=== PATIENT | female | born 1965 | race Caucasian/White ===

== ENCOUNTER 2016-07-11 07:08 | Emergency (ER) | payer BC, MEDICARE ==
[2016-07-11 07:21] VITALS: BP 126/76
[2016-07-11] MEDS ORDERED: Lidocaine 2% Viscous Solution 15 ML Cup PO ONE (07:35)
[2016-07-11] MEDS ORDERED: Benzocaine 20% Topical Spray UD MUCMEM ONE (07:35)
--- NOTE | 2016-07-11 07:39 | EDM.PDOC ---
ED HPI ENT - General Chief Complaint: ENT Problem Stated Complaint: TOOTH PAIN Time Seen by Provider: 07/11/16 07:13 Source of Information: Reports: Patient History Limitations: Reports: No limitations - History of Present Illness INITIAL COMMENTS - FREE TEXT/NARRATIVE: History of present illness: [] Patient has had 5 days of dental pain is worsening symptoms. She denies any fevers, chills, drainage from her lower front tooth. She has a dentist however is on vacation. Patient has no difficulty swallowing or breathing. Review of systems: As per history of present illness and below otherwise all systems reviewed and negative. Past medical history: As per history of present illness and as reviewed below otherwise noncontributory. Surgical history: As per history of present illness and as reviewed below otherwise noncontributory. Social history: No reported history of drug or alcohol abuse. Family history: As per history of present illness and as reviewed below otherwise noncontributory. Physical exam: General: Well developed, well nourished in NAD HEENT: Atraumatic, normocephalic, pupils reactive, negative for conjunctival pallor or scleral icterus, mucous membranes moist, throat clear, neck supple, nontender, trachea midline. No facial swelling or erythema or gingival drainage , swelling or erythema Lungs: Clear to auscultation, breath sounds equal bilaterally, chest nontender. Heart: S1S2, regular, negative for clicks, rubs, or JVD. Abdomen: Soft, nondistended, nontender. Negative for masses or hepatosplenomegaly. Negative for costovertebral tenderness. Pelvis: Stable nontender. Genitourinary: Deferred. Rectal: Deferred. Extremities: Atraumatic, negative for cords or calf pain. Neurovascular unremarkable. Neuro: Awake, alert, oriented. Cranial nerves II through XII unremarkable. Cerebellum unremarkable. Motor and sensory unremarkable throughout. Exam nonfocal. Diagnostics: [] Therapeutics: [] Impression: [] Dental pain Plan: [] Followup dentist, dental pulse for pain, Pen-Vee K 3 times a day. Definitive disposition and diagnosis as appropriate pending reevaluation and review of above. - Related Data Allergies/ADRs: Allergies Allergy/AdvReac Type Severity Reaction Status Date / Time No Known Allergies Allergy Verified 07/11/16 07:20 Home Meds: Home Meds DULoxetine [Cymbalta] 60 mg PO DAILY 01/13/14 [History] Omeprazole [Prilosec] 20 mg PO DAILY 05/21/14 [History] Chlorthalidone 12.5 mg PO DAILY 07/11/16 [History] Losartan [Cozaar] 50 mg PO DAILY 07/11/16 [History] Penicillin V Potassium 500 mg PO Q8HR #30 tab 07/11/16 [Rx] Past Medical History Cardiovascular History: Reports: High cholesterol, Hypertension Gastrointestinal History: Reports: GERD Other OB/BYN History: D&C Psychiatric History: Reports: Depression - Infectious Disease History Infectious Disease History: Reports: Chicken pox, Measles, Mumps - Past Surgical History Musculoskeletal Surgical History: Reports: Hip replacement Other Musculoskeletal Surgeries/Procedures:: back surgery Social & Family History - Family History Family Medical History: Noncontributory - Tobacco Use Smoking Status *Q: Current Every Day Smoker Years of Tobacco use: 30 Packs/Tins Daily: 0.5 Used Tobacco, but Quit: Yes Month Tobacco Last Used: 11 Second Hand Smoke Exposure: No - Caffeine Use Caffeine Use: Reports: None - Alcohol Use Days Per Week of Alcohol Use: 0 - Recreational Drug Use Recreational Drug Use: No Recreational Drug Type: Reports: Cocaine, Marijuana/Hashish Recreational Drug Use Frequency: Not Used In Over 1 Year Recreational Drug Last Use: 20 years ago ED ROS ENT - Review of Systems Review Of Systems: See Below (See history of present illness) ED EXAM, ENT - Physical Exam Exam: See Below (See history of present illness) Course - Vital Signs Last Recorded V/S: Last Vital Signs Temp 36.7 C 07/11/16 07:18 Pulse 81 07/11/16 07:18 Resp 18 07/11/16 07:18 BP 126/76 07/11/16 07:18 Pulse Ox 94 L 07/11/16 07:18 - Orders/Labs/Meds Meds: Medications Discontinued Medications Generic Name Dose Route Start Last Admin Trade Name Davidq PRN Reason Stop Dose Admin Benzocaine 2 each 07/11/16 07:35 Hurricaine One 20% MUCMEM 07/11/16 07:36 ONETIME ONE Lidocaine HCl 15 ml 07/11/16 07:35 Xylocaine 2% Viscous PO 07/11/16 07:36 ONETIME ONE Departure - Departure Time of Disposition: 07:38 Disposition: Home, Self-Care 01 Condition: good Clinical Impression: Pain, dental Prescriptions: Penicillin V Potassium 500 mg PO Q8HR #30 tab Forms: ED Department Discharge Additional Instructions: The following information is given to patients seen in the emergency department who are being discharged to home. This information is to outline your options for follow-up care. We provide all patients seen in our emergency department with a follow-up referral. The need for follow-up, as well as the timing and circumstances, are variable depending upon the specifics of your emergency department visit. If you don't have a primary care physician on staff, we will provide you with a referral. We always advise you to contact your personal physician following an emergency department visit to inform them of the circumstance of the visit and for follow-up with them and/or the need for any referrals to a consulting specialist. The emergency department will also refer you to a specialist when appropriate. This referral assures that you have the opportunity for follow-up care with a specialist. All of these measure are taken in an effort to provide you with optimal care, which includes your follow-up. Under all circumstances we always encourage you to contact your private physician who remains a resource for coordinating your care. When calling for follow-up care, please make the office aware that this follow-up is from your recent emergency room visit. If for any reason you are refused follow-up, please contact the [facility] Emergency Department at and asked to speak to the emergency department charge nurse. [facility] [address] [place] [id number]
== END 2016-07-11 08:03 | disposition home or self-care (01) ==
LOC: MW.ED 07:08
DX: K08.89 Other specified disorders of teeth and supporting structures (principal); I10 Essential (primary) hypertension; E78.00 Pure hypercholesterolemia, unspecified; K21.9 Gastro-esophageal reflux disease without esophagitis; F32.9 Major depressive disorder, single episode, unspecified; F17.210 Nicotine dependence, cigarettes, uncomplicated; Z96.649 Presence of unspecified artificial hip joint; Z98.890 Other specified postprocedural states; Z79.899 Other long term (current) drug therapy
CPT/HCPCS: 99282; A9270; 99283

== ENCOUNTER 2016-12-25 09:30 | Emergency (ER) | payer BC, MEDICARE ==
--- NOTE | 2016-12-25 09:58 | EDM.PDOC ---
ED HPI GENERAL MEDICAL PROBLEM - General Chief Complaint: Head Injury Stated Complaint: FELL AND HIT THE BACK OF HER HEAD Time Seen by Provider: 12/25/16 09:34 Source of Information: Reports: Patient History Limitations: Reports: No Limitations - History of Present Illness INITIAL COMMENTS - FREE TEXT/NARRATIVE: History of present illness: []Patient was sitting on a metal bar stool when it broke and she fell backwards hitting her head on the floor at home no loss of consciousness and has a large lump on the back of her head. Denies any loss of vision, numbness or tingling or vomiting. She does have pain in the area where she had and nausea. Patient also states that she landed on her left hip and she has previously had a left hip replacement she denies any pain at this time. Review of systems: As per history of present illness and below otherwise all systems reviewed and negative. Past medical history: As per history of present illness and as reviewed below otherwise noncontributory. Surgical history: As per history of present illness and as reviewed below otherwise noncontributory. Social history: No reported history of drug or alcohol abuse. Family history: As per history of present illness and as reviewed below otherwise noncontributory. Physical exam: General: Well developed, well nourished in NAD HEENT: Large swelling of the back of her scalp no neck pain or vertebral step- offs, there is no open wounds normocephalic, pupils reactive, negative for conjunctival pallor or scleral icterus, mucous membranes moist, throat clear, neck supple, nontender, trachea midline. Lungs: Clear to auscultation, breath sounds equal bilaterally, chest nontender. Heart: S1S2, regular, negative for clicks, rubs, or JVD. Abdomen: Soft, nondistended, nontender. Negative for masses or hepatosplenomegaly. Negative for costovertebral tenderness. Pelvis: Stable nontender. Genitourinary: Deferred. Rectal: Deferred. Extremities: Atraumatic, negative for cords or calf pain. Neurovascular unremarkable. Neuro: Awake, alert, oriented. Cranial nerves II through XII unremarkable. Cerebellum unremarkable. Motor and sensory unremarkable throughout. Exam nonfocal. Diagnostics: []CT head negative for fracture or bleed Therapeutics: [] Impression: []Scalp contusion Plan: []Ice to scalp, Tylenol, follow-up PMD or return to [facility] ER if symptoms worsen or change Definitive disposition and diagnosis as appropriate pending reevaluation and review of above. Treatments [employer]ATIONS ASSOCIATE: Reports: NSAIDS Posterior Occipital Head Pain Score (Numeric/FACES): 5 - Related Data Allergies Allergy/AdvReac Type Severity Reaction Status Date / Time No Known Allergies Allergy Verified 12/25/16 09:52 Home Meds: Home Meds DULoxetine [Cymbalta] 60 mg PO DAILY 01/13/14 [History] Omeprazole [Prilosec] 20 mg PO DAILY 05/21/14 [History] Chlorthalidone 12.5 mg PO DAILY 07/11/16 [History] Losartan [Cozaar] 50 mg PO DAILY 07/11/16 [History] Past Medical History Cardiovascular History: Reports: High Cholesterol, Hypertension Gastrointestinal History: Reports: GERD Other OB/BYN History: D&C Psychiatric History: Reports: Depression - Infectious Disease History Infectious Disease History: Reports: Chicken Pox, Measles, Mumps - Past Surgical History Musculoskeletal Surgical History: Reports: Hip Replacement Social & Family History - Family History Family Medical History: Noncontributory - Tobacco Use Smoking Status *Q: Current Every Day Smoker Years of Tobacco use: 30 Packs/Tins Daily: 0.5 Used Tobacco, but Quit: Yes Month Tobacco Last Used: 11 Second Hand Smoke Exposure: No - Caffeine Use Caffeine Use: Reports: None - Alcohol Use Days Per Week of Alcohol Use: 0 - Recreational Drug Use Recreational Drug Use: No Recreational Drug Type: Reports: Cocaine, Marijuana/Hashish Recreational Drug Use Frequency: Not Used In Over 1 Year Recreational Drug Last Use: 20 years ago ED ROS GENERAL - Review of Systems Review Of Systems: See Below (History of present illness) ED EXAM, HEAD INJURY - Physical Exam Exam: See Below (See history of present illness) Course - Vital Signs Last Recorded V/S: Last Vital Signs Temp 36.3 C 12/25/16 09:46 Pulse 72 12/25/16 09:46 Resp 12 12/25/16 09:46 BP 134/89 12/25/16 09:46 Pulse Ox 97 12/25/16 09:46 Departure - Departure Time of Disposition: 10:47 Disposition: Home, Self-Care 01 Condition: Good Clinical Impression: Scalp contusion Qualifiers: Encounter type: initial encounter Qualified Code(s): S00.03XA - Contusion of scalp, initial encounter - Discharge Information Referrals: PCP,None [Primary Care Provider] - Forms: ED Department Discharge Additional Instructions: The following information is given to patients seen in the emergency department who are being discharged to home. This information is to outline your options for follow-up care. We provide all patients seen in our emergency department with a follow-up referral. The need for follow-up, as well as the timing and circumstances, are variable depending upon the specifics of your emergency department visit. If you don't have a primary care physician on staff, we will provide you with a referral. We always advise you to contact your personal physician following an emergency department visit to inform them of the circumstance of the visit and for follow-up with them and/or the need for any referrals to a consulting specialist. The emergency department will also refer you to a specialist when appropriate. This referral assures that you have the opportunity for follow-up care with a specialist. All of these measure are taken in an effort to provide you with optimal care, which includes your follow-up. Under all circumstances we always encourage you to contact your private physician who remains a resource for coordinating your care. When calling for follow-up care, please make the office aware that this follow-up is from your recent emergency room visit. If for any reason you are refused follow-up, please contact the [facility] Emergency Department at and asked to speak to the emergency department charge nurse. Ice to scalp, Tylenol for pain with PMD return immediately to the ER if any symptoms worsen or change including severe headache, vomiting, change in vision [facility] [address] [place] [id number]
--- NOTE | 2016-12-25 10:41 | CT ---
EXAMINATION: Non contrast CT head. Coronal and sagittal reformats. HISTORY: Pain FINDINGS: No evidence of intra or extra axial hemorrhage, mass, midline shift, hydrocephalus or edema. No hyp oattenuation changes in the major vascular territories to suggest acute infarct. No abnormal intracranial calcifications are detected. No evidence of substantial vascular calcificat ions. There is heterogeneous opacification of the right maxillary sinus with overlying mucoperiosteal react ion. There is erosion versus postsurgical changes noted along the medial right maxillary wall. Pituitary fossa appears unremarkable. The calvarium is intact. No evidence of skull fracture. IMPRESSION: 1. No acute intracranial findings. 2. Heterogeneous opacification of the right maxillary sinus, likely representing a fungal infection v ersus inspissated secretions.
[2016-12-25 11:07] VITALS: BP 118/72
== END 2016-12-25 11:05 | disposition home or self-care (01) ==
LOC: MW.ED 09:30
DX: S00.03XA Contusion of scalp, initial encounter (principal); E78.00 Pure hypercholesterolemia, unspecified; I10 Essential (primary) hypertension; F17.210 Nicotine dependence, cigarettes, uncomplicated; Z79.899 Other long term (current) drug therapy; W01.10XA Fall on same level from slipping, tripping and stumbling with subsequent striking against unspecified object, initial encounter
CPT/HCPCS: 70450; 70450-26; 99283; 99284-25

== ENCOUNTER 2017-03-20 21:02 | Emergency (ER) | payer BC, MEDICARE ==
--- NOTE | 2017-03-20 21:16 | EDM.PDOC ---
ED HPI GENERAL MEDICAL PROBLEM - General Chief Complaint: Respiratory Problem Stated Complaint: TROUBLE BREATHING/CHEST PAIN/COUGH/CONGESTION Time Seen by Provider: 03/20/17 21:13 - History of Present Illness INITIAL COMMENTS - FREE TEXT/NARRATIVE: HISTORY AND PHYSICAL: History of present illness: Patient's 51-year-old white female presents with concern of multiple complaints she states that cough intermittently off and on after [place] she states she' s had fever denies vomiting chest pain or other concern she is a smoker she denies influenza immunization Review of systems: As per history of present illness and below otherwise all systems reviewed and negative. Past medical history: As per history of present illness and as reviewed below otherwise noncontributory. Surgical history: As per history of present illness and as reviewed below otherwise noncontributory. Social history: No reported history of drug or alcohol abuse. Family history: As per history of present illness and as reviewed below otherwise noncontributory. Physical exam: HEENT: Atraumatic, normocephalic, pupils reactive, negative for conjunctival pallor or scleral icterus, mucous membranes moist, throat clear, neck supple, nontender, trachea midline. Lungs: Clear to auscultation, breath sounds equal bilaterally, chest nontender. Heart: S1S2, regular, negative for clicks, rubs, or JVD. Abdomen: Soft, nondistended, nontender. Negative for masses or hepatosplenomegaly. Negative for costovertebral tenderness. Pelvis: Stable nontender. Genitourinary: Deferred. Rectal: Deferred. Extremities: Atraumatic, negative for cords or calf pain. Neurovascular unremarkable. Neuro: Awake, alert, oriented. Cranial nerves II through XII unremarkable. Cerebellum unremarkable. Motor and sensory unremarkable throughout. Exam nonfocal. Diagnostics: CBC CMP chest x-ray influenza screen UA Therapeutics: None Impression: #1 tracheobronchitis Definitive disposition and diagnosis as appropriate pending reevaluation and review of above. - Related Data Allergies Allergy/AdvReac Type Severity Reaction Status Date / Time No Known Allergies Allergy Verified 03/20/17 21:30 Home Meds: Home Meds DULoxetine [Cymbalta] 60 mg PO DAILY 01/13/14 [History] Omeprazole [Prilosec] 20 mg PO DAILY 05/21/14 [History] Chlorthalidone 12.5 mg PO DAILY 07/11/16 [History] Losartan [Cozaar] 50 mg PO DAILY 07/11/16 [History] Past Medical History Cardiovascular History: Reports: High Cholesterol, Hypertension Gastrointestinal History: Reports: GERD Other OB/BYN History: D&C Psychiatric History: Reports: Depression - Infectious Disease History Infectious Disease History: Reports: Chicken Pox, Measles, Mumps - Past Surgical History Musculoskeletal Surgical History: Reports: Hip Replacement Social & Family History - Family History Family Medical History: Noncontributory - Tobacco Use Smoking Status *Q: Current Every Day Smoker Years of Tobacco use: 30 Packs/Tins Daily: 0.5 Used Tobacco, but Quit: Yes Month Tobacco Last Used: 11 Second Hand Smoke Exposure: No - Caffeine Use Caffeine Use: Reports: None - Alcohol Use Days Per Week of Alcohol Use: 0 - Recreational Drug Use Recreational Drug Use: No Drug Use in Last 12 Months: No Recreational Drug Type: Reports: Cocaine, Marijuana/Hashish Other Recreational Drug Type: opiates Recreational Drug Use Frequency: Not Used In Over 1 Year Recreational Drug Last Use: 20 years ago ED ROS GENERAL - Review of Systems Review Of Systems: ROS reveals no pertinent complaints other than HPI. ED EXAM, GENERAL - Physical Exam Exam: See Below (See dictation) Course - Vital Signs Last Recorded V/S: Last Vital Signs Temp 37.4 C 03/20/17 21:02 Pulse 111 H 03/20/17 21:02 Resp 20 03/20/17 21:02 BP 135/89 03/20/17 21:02 Pulse Ox 94 L 03/20/17 21:02 - Orders/Labs/Meds Orders: Active Orders 24 hr Category Date Time Status Chest 1V Frontal [CR] Stat Exams 03/20/17 21:16 Taken Labs: Laboratory Tests 03/20/17 03/20/17 03/20/17 Range/Units 21:30 21:32 21:32 WBC 6.43 (4.0-11.0) K/uL RBC 4.95 (4.30-5.90) M/uL Hgb 14.6 (12.0-16.0) g/dL Hct 42.9 (36.0-46.0) % MCV 86.7 (80.0-98.0) fL MCH 29.5 (27.0-32.0) pg MCHC 34.0 (31.0-37.0) g/dL RDW Std Deviation 42.0 (28.0-62.0) fl RDW Coeff of Tracy 13 (11.0-15.0) % Plt Count 227 (150-400) K/uL MPV 8.70 (7.40-12.00) fL Neut % (Auto) 70.8 (48.0-80.0) % Lymph % (Auto) 19.1 (16.0-40.0) % [place] % (Auto) 6.8 (0.0-15.0) % Eos % (Auto) 2.8 (0.0-7.0) % Baso % (Auto) 0.5 (0.0-1.5) % Neut # (Auto) 4.6 (1.4-5.7) K/uL Lymph # (Auto) 1.2 (0.6-2.4) K/uL Rolette # (Auto) 0.4 (0.0-0.8) K/uL Eos # (Auto) 0.2 (0.0-0.7) K/uL Baso # (Auto) 0.0 (0.0-0.1) K/uL Nucleated RBC % 0.0 /100WBC Nucleated RBCs # 0 K/uL Sodium 138 (136-146) mmol/L Potassium 3.2 L (3.5-5.1) mmol/L Chloride 102 (98-110) mmol/L Carbon Dioxide 24 (21-31) mmol/L BUN 6 (6.0-23.0) mg/dL Creatinine 0.7 (0.6-1.5) mg/dL Est Cr Clr Drug Dosing 91.42 mL/min Estimated GFR (MDRD) > 60.0 ml/min Glucose 110 (60-110) mg/dL Calcium 9.5 (8.8-10.8) mg/dL Total Bilirubin 0.8 (0.1-1.5) mg/dL AST 26 (5-40) IU/L ALT 28 (8-54) IU/L Alkaline Phosphatase 73 (40-150) Total Protein 7.9 (6.0-8.0) g/dL Albumin 4.5 (3.5-5.0) g/dL Globulin 3.4 (2.0-3.5) g/dL Albumin/Globulin Ratio 1.3 (1.3-2.8) Urine Color YELLOW Urine Appearance CLEAR Urine pH 7.0 (5.0-8.0) Ur Specific [place] 1.020 (1.001-1.035) Urine Protein NEGATIVE (NEGATIVE) mg/dL Urine Glucose (UA) NEGATIVE (NEGATIVE) mg/dL Urine Ketones NEGATIVE (NEGATIVE) mg/dL Urine Occult Blood NEGATIVE (NEGATIVE) Urine Nitrite NEGATIVE (NEGATIVE) Urine Bilirubin NEGATIVE (NEGATIVE) Urine Urobilinogen 1.0 (<2.0) EU/dL Ur Leukocyte Esterase NEGATIVE (NEGATIVE) Urine RBC 0-1 (0-2/HPF) Urine WBC 0-1 (0-5/HPF) Ur Epithelial Cells FEW (NONE-FEW) Urine Bacteria FEW (NEGATIVE) Departure - Departure Time of Disposition: 22:33 Disposition: Home, Self-Care 01 Condition: Good Clinical Impression: Influenza - Discharge Information Referrals: PCP,None [Primary Care Provider] - Forms: ED Department Discharge Additional Instructions: The following information is given to patients seen in the emergency department who are being discharged to home. This information is to outline your options for follow-up care. We provide all patients seen in our emergency department with a follow-up referral. The need for follow-up, as well as the timing and circumstances, are variable depending upon the specifics of your emergency department visit. If you don't have a primary care physician on staff, we will provide you with a referral. We always advise you to contact your personal physician following an emergency department visit to inform them of the circumstance of the visit and for follow-up with them and/or the need for any referrals to a consulting specialist. The emergency department will also refer you to a specialist when appropriate. This referral assures that you have the opportunity for followup care with a specialist. All of these measure are taken in an effort to provide you with optimal care, which includes your followup. Under all circumstances we always encourage you to contact your private physician who remains a resource for coordinating your care. When calling for followup care, please make the office aware that this follow-up is from your recent emergency room visit. If for any reason you are refused follow-up, please contact the [facility] emergency department at and asked to speak to the emergency department charge nurse. Motrin/Tylenol as directed push fluids follow-up primary medical doctor 1-2 days return as needed as discussed - My Orders Last 24 Hours: My Active Orders 03/20/17 21:16 Chest 1V Frontal [CR] Stat - Assessment/Plan Last 24 Hours: My Active Orders 03/20/17 21:16 Chest 1V Frontal [CR] Stat
[2017-03-20 21:59] LABS: CHLORIDE,CL 102 mmol/L (98-110); SODIUM,NA 138 mmol/L (136-146)
[2017-03-20 22:44] VITALS: BP 140/69
--- NOTE | 2017-03-21 13:40 | CR ---
EXAM DATE: 03/20/17 PATIENT'S AGE: 51 Patient: LORNA BUCIO Facility: [place], [place] Site . Site : 1965 Study: XRay Chest [id number]/16/2018 9:58:43 PM Ordering Physician: Stepan Flores Final Report: INDICATION: cough x1 month TECHNIQUE: Chest 1 view COMPARISON: None FINDINGS: Cardiovascular and mediastinum: Heart size and vasculature are normal in caliber and appearance. Mediastinum is within normal limits. Lungs and pleural space: No focal consolidation. No sign of pleural effusion. No pneumothorax. Bones and soft tissues: No significant findings. IMPRESSION: No acute cardiopulmonary disease. Dictated by Bob Ibrahim MD @ 03/20/2017 10:29:39 PM Dictated by: Bob Ibrahim MD @ 03/20/2017 22:29:50 (Electronic Signature) Report Signed by Proxy. [facility]ALSuzanna
== END 2017-03-20 22:39 | disposition home or self-care (01) ==
LOC: MW.ED 21:02
DX: J10.1 Influenza due to other identified influenza virus with other respiratory manifestations (principal); J40 Bronchitis, not specified as acute or chronic; E78.00 Pure hypercholesterolemia, unspecified; I10 Essential (primary) hypertension; F17.210 Nicotine dependence, cigarettes, uncomplicated; Z79.899 Other long term (current) drug therapy
CPT/HCPCS: 36415; 71045; 71045-26; 80053; 81001; 85025; 87804; 99283; 99284

== ENCOUNTER 2017-07-08 14:03 | Emergency (ER) | payer MEDICARE, BC ==
[2017-07-08] MEDS ORDERED: Sodium Chloride 0.9% 10 ML Syringe FLUSH PRN (14:10)
[2017-07-08] MEDS ORDERED: Aspirin 81 MG Tab.Chew PO ONE (14:10)
[2017-07-08] MEDS ORDERED: Sodium Chloride 0.9% 2.5 ML Syringe FLUSH PRN (14:10)
[2017-07-08] MEDS ORDERED: Albuterol/Ipratropium 3.0-0.5 MG/3 ML Neb Soln NEB ONE (14:28)
--- NOTE | 2017-07-08 14:32 | EDM.PDOC ---
ED HPI GENERAL MEDICAL PROBLEM - General Chief Complaint: Chest Pain Stated Complaint: CHEST PAIN Time Seen by Provider: 07/08/17 14:06 Source of Information: Reports: Patient History Limitations: Reports: No Limitations - History of Present Illness INITIAL COMMENTS - FREE TEXT/NARRATIVE: HISTORY AND PHYSICAL: History of present illness: [Present is a 52-year-old female with hypertension here for chest pain that started gradually yesterday. Pain is midsternal and she describes it as tight and sometimes throbbing. Pain increased with coughing. Reports it is a 5/10 on pain scale. She denies associated shortness of breath, radiation to left arm or jaw, or diaphoresis. She reports she's had a cough for 3 months, non-productive. Denies fevers, chills, nausea, vomiting, diarrhea, abdominal pain.] Review of systems: As per history of present illness and below otherwise all systems reviewed and negative. Past medical history: As per history of present illness and as reviewed below otherwise noncontributory. Surgical history: As per history of present illness and as reviewed below otherwise noncontributory. Social history: Tobacco Use. Family history: As per history of present illness and as reviewed below otherwise noncontributory. Physical exam: HEENT: Atraumatic, normocephalic, pupils reactive, negative for conjunctival pallor or scleral icterus, mucous membranes moist, Lungs: Breath sounds are slightly diminished throughout lung ashraf, breath sounds equal bilaterally, chest nontender. Heart: S1S2, regular, no murmur, rub, or extra heart sounds Abdomen: Soft, nondistended, nontender. Negative for masses or hepatosplenomegaly. Negative for costovertebral tenderness. Genitourinary: Deferred. Rectal: Deferred. Extremities: No lower extremity edema .Atraumatic, negative for cords or calf pain. Neurovascular unremarkable. Neuro: Awake, alert, oriented. Cranial nerves II through XII unremarkable. Exam nonfocal. Notes: 1550: Patient reports feeling better after having DuoNeb. She reports improvement in chest tightness, pain is a 2/10. Lungs are CTA. Diagnostics: [EKG, CXR, CBC, CMP, Troponin, INR, Amylase, Lipase] Therapeutics: [Aspirin 325mg DuoNeb] Impression: [Bronchitis Chest tightness] Discussed with patient my recommendation to admit for observation of chest pain which she declined. Plan: [1. Use inhaler and take antibiotic as directed 2. Follow-up with your primary care provider 3. Return to ED as needed as discussed] Definitive disposition and diagnosis as appropriate pending reevaluation and review of above. Duration: Day(s): (1) Quality: Reports: Pressure, Throbbing Severity: Mild chest pain Pain Score (Numeric/FACES): 5 - Related Data Allergies Allergy/AdvReac Type Severity Reaction Status Date / Time No Known Allergies Allergy Verified 03/20/17 21:30 Home Meds: Home Meds DULoxetine [Cymbalta] 60 mg PO DAILY 01/13/14 [History] Omeprazole [Prilosec] 20 mg PO DAILY 05/21/14 [History] Chlorthalidone 12.5 mg PO DAILY 07/11/16 [History] Losartan [Cozaar] 50 mg PO DAILY 07/11/16 [History] Past Medical History - Past Health History Medical/Surgical History: Denies Medical/Surgical History Cardiovascular History: Reports: High Cholesterol, Hypertension Gastrointestinal History: Reports: GERD Other OB/BYN History: D&C Musculoskeletal History: Reports: Arthritis, Osteoporosis Psychiatric History: Reports: Depression - Infectious Disease History Infectious Disease History: Reports: Chicken Pox, Measles, Mumps - Past Surgical History Musculoskeletal Surgical History: Reports: Hip Replacement Social & Family History - Family History Family Medical History: Noncontributory - Tobacco Use Smoking Status *Q: Current Every Day Smoker Years of Tobacco use: 30 Packs/Tins Daily: 0.5 Used Tobacco, but Quit: Yes Month/Year Tobacco Last Used: 11 Second Hand Smoke Exposure: No - Caffeine Use Caffeine Use: Reports: None - Alcohol Use Days Per Week of Alcohol Use: 0 - Recreational Drug Use Recreational Drug Use: No Drug Use in Last 12 Months: No Recreational Drug Type: Reports: Cocaine, Marijuana/Hashish Other Recreational Drug Type: opiates Recreational Drug Use Frequency: Not Used In Over 1 Year Recreational Drug Last Use: 20 years ago ED ROS GENERAL - Review of Systems Review Of Systems: ROS reveals no pertinent complaints other than HPI. ED EXAM, GENERAL - Physical Exam Exam: See Below (The dictation) Course - Vital Signs Last Recorded V/S: Last Vital Signs Temp 36.9 C 07/08/17 14:05 Pulse 86 07/08/17 15:28 Resp 20 07/08/17 14:05 BP 126/90 07/08/17 15:28 Pulse Ox 95 07/08/17 15:28 - Orders/Labs/Meds Orders: Active Orders 24 hr Category Date Time Status Cardiac Monitoring [RC] . DIRECTED Care 07/08/17 14:10 Active EKG Documentation Completion [RC] STAT Care 07/08/17 14:10 Active Oxygen Therapy [RC] ASDIRECTED Care 07/08/17 14:10 Active Pulse Oximetry [RC] ASDIRECTED Care 07/08/17 14:10 Active RT Aerosol Therapy [RC] ASDIRECTED Care 07/08/17 14:29 Active Chest 1V Frontal [CR] Stat Exams 07/08/17 14:10 Taken UA W/MICROSCOPIC [URIN] Stat Lab 07/08/17 15:20 Ordered Sodium Chloride 0.9% [Saline Flush] Med 07/08/17 14:10 Active 10 ml FLUSH ASDIRECTED PRN Sodium Chloride 0.9% [Saline Flush] Med 07/08/17 14:10 Active 2.5 ml FLUSH ASDIRECTED PRN Saline Lock Insert [OM.PC] Stat Oth 07/08/17 14:10 Ordered Medication Orders Sodium Chloride (Saline Flush) 10 ml FLUSH ASDIRECTED PRN PRN Reason: Keep Vein Open Sodium Chloride (Saline Flush) 2.5 ml FLUSH ASDIRECTED PRN PRN Reason: Keep Vein Open Labs: Laboratory Tests 07/08/17 07/08/17 07/08/17 Range/Units 14:15 14:15 14:15 WBC 7.51 (4.0-11.0) K/uL RBC 5.39 (4.30-5.90) M/uL Hgb 16.1 H (12.0-16.0) g/dL Hct 47.4 H (36.0-46.0) % MCV 87.9 (80.0-98.0) fL MCH 29.9 (27.0-32.0) pg MCHC 34.0 (31.0-37.0) g/dL RDW Std Deviation 42.0 (28.0-62.0) fl RDW Coeff of Tracy 13 (11.0-15.0) % Plt Count 256 (150-400) K/uL MPV 9.50 (7.40-12.00) fL Neut % (Auto) 62.4 (48.0-80.0) % Lymph % (Auto) 26.0 (16.0-40.0) % [place] % (Auto) 7.6 (0.0-15.0) % Eos % (Auto) 3.6 (0.0-7.0) % Baso % (Auto) 0.4 (0.0-1.5) % Neut # (Auto) 4.7 (1.4-5.7) K/uL Lymph # (Auto) 2.0 (0.6-2.4) K/uL [place] # (Auto) 0.6 (0.0-0.8) K/uL Eos # (Auto) 0.3 (0.0-0.7) K/uL Baso # (Auto) 0.0 (0.0-0.1) K/uL Nucleated RBC % 0.0 /100WBC Nucleated RBCs # 0 K/uL INR 0.98 D-Dimer, Quantitative 0.41 (0.0-0.52) mg/LFEU Sodium 142 (136-145) mmol/L Potassium 3.5 (3.5-5.1) mmol/L Chloride 105 (98-107) mmol/L Carbon Dioxide 25.6 (21.0-32.0) mmol/L BUN 10 (7.0-18.0) mg/dL Creatinine 0.8 (0.6-1.0) mg/dL Est Cr Clr Drug Dosing 73.18 mL/min Estimated GFR (MDRD) > 60.0 ml/min Glucose 101 (74-106) mg/dL Calcium 9.4 (8.5-10.1) mg/dL Total Bilirubin 0.6 (0.2-1.0) mg/dL AST 34 (15-37) IU/L ALT 40 (14-63) IU/L Alkaline Phosphatase 79 (46-116) U/L Troponin I < 0.050 (0.000-0.056) ng/mL Total Protein 8.2 (6.4-8.2) g/dL Albumin 4.0 (3.4-5.0) g/dL Globulin 4.2 H (2.0-3.5) g/dL Albumin/Globulin Ratio 1.0 L (1.3-2.8) Amylase 36 (25-115) U/L Lipase 128 (73-393) U/L Urine Color Urine Appearance Urine pH (5.0-8.0) Ur Specific Freeman (1.001-1.035) Urine Protein (NEGATIVE) mg/dL Urine Glucose (UA) (NEGATIVE) mg/dL Urine Ketones (NEGATIVE) mg/dL Urine Occult Blood (NEGATIVE) Urine Nitrite (NEGATIVE) Urine Bilirubin (NEGATIVE) Urine Urobilinogen (<2.0) EU/dL Ur Leukocyte Esterase (NEGATIVE) Urine RBC (0-2/HPF) Urine WBC (0-5/HPF) Ur Epithelial Cells (NONE-FEW) Urine Bacteria (NEGATIVE) Urine Mucus (NONE-MOD) 07/08/17 Range/Units 15:20 WBC (4.0-11.0) K/uL RBC (4.30-5.90) M/uL Hgb (12.0-16.0) g/dL Hct (36.0-46.0) % MCV (80.0-98.0) fL MCH (27.0-32.0) pg MCHC (31.0-37.0) g/dL RDW Std Deviation (28.0-62.0) fl RDW Coeff of Tracy (11.0-15.0) % Plt Count (150-400) K/uL MPV (7.40-12.00) fL Neut % (Auto) (48.0-80.0) % Lymph % (Auto) (16.0-40.0) % [place] % (Auto) (0.0-15.0) % Eos % (Auto) (0.0-7.0) % Baso % (Auto) (0.0-1.5) % Neut # (Auto) (1.4-5.7) K/uL Lymph # (Auto) (0.6-2.4) K/uL [place] # (Auto) (0.0-0.8) K/uL Eos # (Auto) (0.0-0.7) K/uL Baso # (Auto) (0.0-0.1) K/uL Nucleated RBC % /100WBC Nucleated RBCs # K/uL INR D-Dimer, Quantitative (0.0-0.52) mg/LFEU Sodium (136-145) mmol/L Potassium (3.5-5.1) mmol/L Chloride (98-107) mmol/L Carbon Dioxide (21.0-32.0) mmol/L BUN (7.0-18.0) mg/dL Creatinine (0.6-1.0) mg/dL Est Cr Clr Drug Dosing mL/min Estimated GFR (MDRD) ml/min Glucose (74-106) mg/dL Calcium (8.5-10.1) mg/dL Total Bilirubin (0.2-1.0) mg/dL AST (15-37) IU/L ALT (14-63) IU/L Alkaline Phosphatase (46-116) U/L Troponin I (0.000-0.056) ng/mL Total Protein (6.4-8.2) g/dL Albumin (3.4-5.0) g/dL Globulin (2.0-3.5) g/dL Albumin/Globulin Ratio (1.3-2.8) Amylase (25-115) U/L Lipase (73-393) U/L Urine Color YELLOW Urine Appearance CLEAR Urine pH 5.5 (5.0-8.0) Ur Specific [place] 1.010 (1.001-1.035) Urine Protein NEGATIVE (NEGATIVE) mg/dL Urine Glucose (UA) NEGATIVE (NEGATIVE) mg/dL Urine Ketones NEGATIVE (NEGATIVE) mg/dL Urine Occult Blood NEGATIVE (NEGATIVE) Urine Nitrite NEGATIVE (NEGATIVE) Urine Bilirubin NEGATIVE (NEGATIVE) Urine Urobilinogen 1.0 (<2.0) EU/dL Ur Leukocyte Esterase NEGATIVE (NEGATIVE) Urine RBC 0-1 (0-2/HPF) Urine WBC 0-2 (0-5/HPF) Ur Epithelial Cells FEW (NONE-FEW) Urine Bacteria FEW (NEGATIVE) Urine Mucus LIGHT (NONE-MOD) Meds: Medications Generic Name Dose Route Start Last Admin Trade Name Freq PRN Reason Stop Dose Admin Sodium Chloride 10 ml 07/08/17 14:10 Saline Flush FLUSH ASDIRECTED PRN Keep Vein Open Sodium Chloride 2.5 ml 07/08/17 14:10 Saline Flush FLUSH ASDIRECTED PRN Keep Vein Open Discontinued Medications Generic Name Dose Route Start Last Admin Trade Name Freq PRN Reason Stop Dose Admin Albuterol/Ipratropium 3 ml 07/08/17 14:28 07/08/17 14:40 Duoneb 3.0-0.5 Mg/3 Ml NEB 07/08/17 14:29 3 ml ONETIME ONE Administration Aspirin 324 mg 07/08/17 14:10 07/08/17 14:48 Aspirin PO 07/08/17 14:11 324 mg ONETIME ONE Administration Departure - Departure Time of Disposition: 16:31 Disposition: Home, Self-Care 01 Condition: Good Clinical Impression: Bronchitis Referrals: PCP,None [Primary Care Provider] - Forms: ED Department Discharge Additional Instructions: The following information is given to patients seen in the emergency department who are being discharged to home. This information is to outline your options for follow-up care. We provide all patients seen in our emergency department with a follow-up referral. The need for follow-up, as well as the timing and circumstances, are variable depending upon the specifics of your emergency department visit. If you don't have a primary care physician on staff, we will provide you with a referral. We always advise you to contact your personal physician following an emergency department visit to inform them of the circumstance of the visit and for follow-up with them and/or the need for any referrals to a consulting specialist. The emergency department will also refer you to a specialist when appropriate. This referral assures that you have the opportunity for follow-up care with a specialist. All of these measure are taken in an effort to provide you with optimal care, which includes your follow-up. Under all circumstances we always encourage you to contact your private physician who remains a resource for coordinating your care. When calling for follow-up care, please make the office aware that this follow-up is from your recent emergency room visit. If for any reason you are refused follow-up, please contact the [facility] Emergency Department at and asked to speak to the emergency department charge nurse. 1. Use inhaler and take antibiotic as directed 2. Follow-up with your primary care provider 3. Return to ED as needed as discussed - My Orders Last 24 Hours: My Active Orders 07/08/17 14:10 Cardiac Monitoring [RC] . DIRECTED EKG Documentation Completion [RC] STAT Oxygen Therapy [RC] ASDIRECTED Pulse Oximetry [RC] ASDIRECTED Chest 1V Frontal [CR] Stat Sodium Chloride 0.9% [Saline Flush] 10 ml FLUSH ASDIRECTED PRN Sodium Chloride 0.9% [Saline Flush] 2.5 ml FLUSH ASDIRECTED PRN Saline Lock Insert [OM.PC] Stat 07/08/17 14:29 RT Aerosol Therapy [RC] ASDIRECTED 07/08/17 15:20 UA W/MICROSCOPIC [URIN] Stat - Assessment/Plan Last 24 Hours: My Active Orders 07/08/17 14:10 Cardiac Monitoring [RC] . DIRECTED EKG Documentation Completion [RC] STAT Oxygen Therapy [RC] ASDIRECTED Pulse Oximetry [RC] ASDIRECTED Chest 1V Frontal [CR] Stat Sodium Chloride 0.9% [Saline Flush] 10 ml FLUSH ASDIRECTED PRN Sodium Chloride 0.9% [Saline Flush] 2.5 ml FLUSH ASDIRECTED PRN Saline Lock Insert [OM.PC] Stat 07/08/17 14:29 RT Aerosol Therapy [RC] ASDIRECTED 07/08/17 15:20 UA W/MICROSCOPIC [URIN] Stat
[2017-07-08 14:58] LABS: CHLORIDE,CL 105 mmol/L (98-107); SODIUM,NA 142 mmol/L (136-145)
[2017-07-08 17:05] VITALS: BP 145/104
--- NOTE | 2017-07-09 13:32 | CR ---
EXAM DATE: 07/08/17 PATIENT'S AGE: 52 Patient: LORNA BUCIO Facility: [place], [place] Site . Site : [id number] Study: XRay Chest [id number]/[id number] 3:10:06 PM Ordering Physician: Doctor Ruiz Final Report: CLINICAL INDICATION: Chest pain. FINDINGS: The cardiomediastinal silhouette, lung parenchyma, pulmonary vasculature and pleural surfaces are all normal in appearance. The bony thorax appears intact. IMPRESSION: Negative study. Dictated by Tobi George MD @ Jul 08 2017 3:37PM (Electronic Signature) Report Signed by Proxy. [place]
== END 2017-07-08 16:52 | disposition home or self-care (01) ==
LOC: MW.ED 14:03
DX: J40 Bronchitis, not specified as acute or chronic (principal); I10 Essential (primary) hypertension; K21.9 Gastro-esophageal reflux disease without esophagitis; Z79.899 Other long term (current) drug therapy; F17.210 Nicotine dependence, cigarettes, uncomplicated
CPT/HCPCS: 36415; 71045; 80053; 81001; 82150; 83690; 84484; 85025; 85379; 85610; 93005; 94640; 99285; A9270

== ENCOUNTER 2019-04-23 12:41 | Emergency (ER) | payer MEDICARE, OTHER ==
[2019-04-23] MEDS ORDERED: Sodium Chloride 0.9% 2.5 ML Syringe FLUSH PRN (12:59)
[2019-04-23] MEDS ORDERED: Sodium Chloride 0.9% 10 ML Syringe FLUSH PRN (12:59)
--- NOTE | 2019-04-23 12:59 | EDM.PDOC ---
ED HPI GENERAL MEDICAL PROBLEM - General Stated Complaint: FEVER,DIARRHEA,CHILLS Time Seen by Provider: 04/23/19 12:47 Source of Information: Reports: Patient History Limitations: Reports: No Limitations - History of Present Illness INITIAL COMMENTS - FREE TEXT/NARRATIVE: HISTORY AND PHYSICAL: History of present illness: Patient is a 53-year-old female who presents to the emergency room with complaints of fever, cough, generalized abdominal pain, nausea and diarrhea. She states over the past few days she has had an "upset stomach" with several bouts of diarrhea last evening. She states she has not had any loose stools today although has not eaten much. She states she has been pushing fluids and drinking plenty and keeping this down. With the diarrhea last evening she did have some nausea but believes this has resolved. Generalized abdominal pain which she believes is from all the cramping associated with the diarrhea last evening. Over the past 2 days, worse today she has had a cough and pain in her chest when she takes in a deep breath. Review of systems: As per history of present illness and below otherwise all systems reviewed and negative. Past medical history: As per history of present illness and as reviewed below otherwise noncontributory. Surgical history: As per history of present illness and as reviewed below otherwise noncontributory. Social history: See social history for further information Family history: As per history of present illness and as reviewed below otherwise noncontributory. Physical exam: General: Well-developed and well-nourished 53-year-old female. Alert and oriented. Nontoxic-appearing and in no acute distress. HEENT: Atraumatic, normocephalic, pupils equal and reactive bilaterally, negative for conjunctival pallor or scleral icterus, mucous membranes moist, TMs normal bilaterally, throat clear, neck supple, nontender, trachea midline. No drooling or trismus noted. No meningeal signs. No hot potato voice noted. Lungs: Slightly diminished to bases bilaterally, otherwise clear to auscultation , breath sounds equal bilaterally, chest nontender. Dry nonproductive cough noted Heart: S1S2, regular rate and rhythm without overt murmur Abdomen: Soft, nondistended, nontender. Negative for masses or hepatosplenomegaly. Negative for costovertebral tenderness. Pelvis: Stable nontender. Skin: Intact, warm, dry. No lesions or rashes noted. Extremities: Atraumatic, moves all extremities per self without difficulty or deficits, negative for cords or calf pain. Neurovascular unremarkable. Neuro: Awake, alert, oriented. Cranial nerves II through XII unremarkable. Cerebellum unremarkable. Motor and sensory unremarkable throughout. Exam nonfocal. Notes: Lab work is unremarkable. Urine shows a few WBCs although does appear contaminated, will add a culture. Patient states she is unable to give a stool and feels that her diarrhea has resolved. Just reads the chest x-ray as clear. I do see a small infiltrate to the right lower lobe. Supportive care measures were reviewed and discussed. Voices understanding and is agreeable to plan of care. Denies any further questions or concerns at this time. Diagnostics: CBC, CMP, UA, Troponin, EKG, CXR, influenza, EKG, stool studies Therapeutics: None Prescription: Cheratussin (#4oz) Robin Impression: Bronchitis Plan: 1. Stop smoking please. 2. Take the medications as directed. 3. Follow up with your primary care provider as we discussed. Return to the ED as needed and as discussed. Definitive disposition and diagnosis as appropriate pending reevaluation and review of above. Chest Pain Score (Numeric/FACES): 5 - Related Data Allergies Allergy/AdvReac Type Severity Reaction Status Date / Time No Known Allergies Allergy Verified 04/23/19 13:26 Home Meds: Home Meds Chlorthalidone 12.5 mg PO DAILY 07/11/16 [History] Ibuprofen 2 tab PO ASDIRECTED PRN 11/27/18 [History] Past Medical History - Past Health History Medical/Surgical History: Denies Medical/Surgical History HEENT History: Reports: None Cardiovascular History: Reports: Hypertension Respiratory History: Reports: None Gastrointestinal History: Reports: Chronic Constipation, Colon Polyp Genitourinary History: Reports: None 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: Musculoskeletal History: Reports: Arthritis, Fracture, Osteoporosis Other Musculoskeletal History: hx fx, wrist, ankle, elbow and fingers Neurological History: Reports: None Psychiatric History: Reports: Anxiety, Depression, PTSD Endocrine/Metabolic History: Reports: None Hematologic History: Reports: None Immunologic History: Reports: None Oncologic (Cancer) History: Reports: None Dermatologic History: Reports: None - Infectious Disease History Infectious Disease History: Reports: Chicken Pox, Measles, Mumps - Past Surgical History Head Surgeries/Procedures: Reports: None HEENT Surgical History: Reports: None Cardiovascular Surgical History: Reports: None Respiratory Surgical History: Reports: None GI Surgical History: Reports: None Female Surgical History: Reports: D&C Other Female Surgeries/Procedures: hysteroscopy & D&C Endocrine Surgical History: Reports: None Neurological Surgical History: Reports: Lumbar Spine Other Neurological Surgeries/Procedures: hx back surgery Musculoskeletal Surgical History: Reports: Hip Replacement Other Musculoskeletal Surgeries/Procedures:: evelina hip replacement, back surgery Oncologic Surgical History: Reports: None Dermatological Surgical History: Reports: None Social & Family History - Family History Family Medical History: Noncontributory - Caffeine Use Caffeine Use: Reports: None ED ROS GENERAL - Review of Systems Review Of Systems: Comprehensive ROS is negative, except as noted in HPI. ED EXAM, GI/ABD - Physical Exam Exam: See Below (See dictation) Course - Vital Signs Last Recorded V/S: Last Vital Signs Temp 98.0 F 04/23/19 13:17 Pulse 91 04/23/19 13:17 Resp 15 04/23/19 13:17 BP 147/95 H 04/23/19 13:17 Pulse Ox 95 04/23/19 13:17 - Orders/Labs/Meds Orders: Active Orders 24 hr Category Date Time Status EKG Documentation Completion [RC] STAT Care 04/23/19 13:31 Active Labs: Laboratory Tests 04/23/19 04/23/19 04/23/19 Range/Units 12:59 13:38 13:38 WBC 7.09 (4.0-11.0) K/uL RBC 5.53 (4.30-5.90) M/uL Hgb 17.3 H (12.0-16.0) g/dL Hct 49.6 H (36.0-46.0) % MCV 89.7 (80.0-98.0) fL MCH 31.3 (27.0-32.0) pg MCHC 34.9 (31.0-37.0) g/dL RDW Std Deviation 43.6 (28.0-62.0) fl RDW Coeff of Tracy 13 (11.0-15.0) % Plt Count 149 L (150-400) K/uL MPV 9.20 (7.40-12.00) fL Neut % (Auto) 64.8 (48.0-80.0) % Lymph % (Auto) 23.7 (16.0-40.0) % [place] % (Auto) 11.4 (0.0-15.0) % Eos % (Auto) 0.0 (0.0-7.0) % Baso % (Auto) 0.1 (0.0-1.5) % Neut # (Auto) 4.6 (1.4-5.7) K/uL Lymph # (Auto) 1.7 (0.6-2.4) K/uL [place] # (Auto) 0.8 (0.0-0.8) K/uL Eos # (Auto) 0.0 (0.0-0.7) K/uL Baso # (Auto) 0.0 (0.0-0.1) K/uL Nucleated RBC % 0.0 /100WBC Nucleated RBCs # 0 K/uL Sodium 138 (136-145) mmol/L Potassium 3.9 (3.5-5.1) mmol/L Chloride 100 (98-107) mmol/L Carbon Dioxide 23.8 (21.0-32.0) mmol/L BUN 16 (7.0-18.0) mg/dL Creatinine 0.7 (0.6-1.0) mg/dL Est Cr Clr Drug Dosing 86.01 mL/min Estimated GFR (MDRD) > 60.0 ml/min Glucose 75 (74-106) mg/dL Calcium 9.5 (8.5-10.1) mg/dL Total Bilirubin 0.7 (0.2-1.0) mg/dL AST 37 (15-37) IU/L ALT 40 (14-63) IU/L Alkaline Phosphatase 71 (46-116) U/L Troponin I (0.000-0.056) ng/mL Total Protein 8.0 (6.4-8.2) g/dL Albumin 4.1 (3.4-5.0) g/dL Globulin 3.9 (2.6-4.0) g/dL Albumin/Globulin Ratio 1.1 (0.9-1.6) Urine Color DARK YELLOW Urine Appearance CLEAR Urine pH 5.5 (5.0-8.0) Ur Specific [place] >= 1.030 (1.001-1.035) Urine Protein 30 H (NEGATIVE) mg/dL Urine Glucose (UA) NEGATIVE (NEGATIVE) mg/dL Urine Ketones 15 H (NEGATIVE) mg/dL Urine Occult Blood TRACE-INTACT H (NEGATIVE) Urine Nitrite NEGATIVE (NEGATIVE) Urine Bilirubin MODERATE H (NEGATIVE) Urine Ictotest NEGATIVE Urine Urobilinogen 2.0 H (<2.0) EU/dL Ur Leukocyte Esterase NEGATIVE (NEGATIVE) Urine RBC 0-2 (0-2/HPF) Urine WBC 2-3 (0-5/HPF) Ur Epithelial Cells OCCASIONAL (NONE-FEW) Amorphous Sediment FEW (NEGATIVE) Urine Bacteria FEW (NEGATIVE) Urine Mucus FEW (NONE-MOD) 04/23/19 Range/Units 13:38 WBC (4.0-11.0) K/uL RBC (4.30-5.90) M/uL Hgb (12.0-16.0) g/dL Hct (36.0-46.0) % MCV (80.0-98.0) fL MCH (27.0-32.0) pg MCHC (31.0-37.0) g/dL RDW Std Deviation (28.0-62.0) fl RDW Coeff of Tracy (11.0-15.0) % Plt Count (150-400) K/uL MPV (7.40-12.00) fL Neut % (Auto) (48.0-80.0) % Lymph % (Auto) (16.0-40.0) % [place] % (Auto) (0.0-15.0) % Eos % (Auto) (0.0-7.0) % Baso % (Auto) (0.0-1.5) % Neut # (Auto) (1.4-5.7) K/uL Lymph # (Auto) (0.6-2.4) K/uL [place] # (Auto) (0.0-0.8) K/uL Eos # (Auto) (0.0-0.7) K/uL Baso # (Auto) (0.0-0.1) K/uL Nucleated RBC % /100WBC Nucleated RBCs # K/uL Sodium (136-145) mmol/L Potassium (3.5-5.1) mmol/L Chloride (98-107) mmol/L Carbon Dioxide (21.0-32.0) mmol/L BUN (7.0-18.0) mg/dL Creatinine (0.6-1.0) mg/dL Est Cr Clr Drug Dosing mL/min Estimated GFR (MDRD) ml/min Glucose (74-106) mg/dL Calcium (8.5-10.1) mg/dL Total Bilirubin (0.2-1.0) mg/dL AST (15-37) IU/L ALT (14-63) IU/L Alkaline Phosphatase (46-116) U/L Troponin I < 0.050 (0.000-0.056) ng/mL Total Protein (6.4-8.2) g/dL Albumin (3.4-5.0) g/dL Globulin (2.6-4.0) g/dL Albumin/Globulin Ratio (0.9-1.6) Urine Color Urine Appearance Urine pH (5.0-8.0) Ur Specific [place] (1.001-1.035) Urine Protein (NEGATIVE) mg/dL Urine Glucose (UA) (NEGATIVE) mg/dL Urine Ketones (NEGATIVE) mg/dL Urine Occult Blood (NEGATIVE) Urine Nitrite (NEGATIVE) Urine Bilirubin (NEGATIVE) Urine Ictotest Urine Urobilinogen (<2.0) EU/dL Ur Leukocyte Esterase (NEGATIVE) Urine RBC (0-2/HPF) Urine WBC (0-5/HPF) Ur Epithelial Cells (NONE-FEW) Amorphous Sediment (NEGATIVE) Urine Bacteria (NEGATIVE) Urine Mucus (NONE-MOD) Meds: Medications Discontinued Medications Generic Name Dose Route Start Last Admin Trade Name Freq PRN Reason Stop Dose Admin Sodium Chloride 10 ml 04/23/19 12:59 Saline Flush FLUSH ASDIRECTED PRN Keep Vein Open Sodium Chloride 2.5 ml 04/23/19 12:59 Saline Flush FLUSH ASDIRECTED PRN Keep Vein Open Departure - Departure Time of Disposition: 14:38 Disposition: Home, Self-Care 01 Clinical Impression: Bronchitis - Discharge Information Instructions: Upper Respiratory Infection, Adult, [id number] Referrals: Morgan Hidalgo MD [Primary Care Provider] - Additional Instructions: The following information is given to patients seen in the emergency department who are being discharged to home. This information is to outline your options for follow-up care. We provide all patients seen in our emergency department with a follow-up referral. The need for follow-up, as well as the timing and circumstances, are variable depending upon the specifics of your emergency department visit. If you don't have a primary care physician on staff, we will provide you with a referral. We always advise you to contact your personal physician following an emergency department visit to inform them of the circumstance of the visit and for follow-up with them and/or the need for any referrals to a consulting specialist. The emergency department will also refer you to a specialist when appropriate. This referral assures that you have the opportunity for follow-up care with a specialist. All of these measure are taken in an effort to provide you with optimal care, which includes your follow-up. Under all circumstances we always encourage you to contact your private physician who remains a resource for coordinating your care. When calling for follow-up care, please make the office aware that this follow-up is from your recent emergency room visit. If for any reason you are refused follow-up, please contact the [facility] Emergency Department at and asked to speak to the emergency department charge nurse. [facility] [address] [place] [address] [place] [address] 1. Stop smoking please. 2. Take the medications as directed. 3. Follow up with your primary care provider as we discussed. Return to the ED as needed and as discussed. Sepsis Event Note - Focused Exam Vital Signs: Vital Signs Temp Pulse Resp BP Pulse Ox 04/23/19 13:17 98.0 F 91 15 147/95 H 95 Date Exam was Performed: 04/23/19 Time Exam was Performed: 14:37 - My Orders Last 24 Hours: My Active Orders 04/23/19 13:31 EKG Documentation Completion [RC] STAT - Assessment/Plan Last 24 Hours: My Active Orders 04/23/19 13:31 EKG Documentation Completion [RC] STAT
[2019-04-23 14:09] LABS: BLOOD UREA NITROGEN,BUN 16 mg/dL (7.0-18.0); CARBON DIOXIDE,CO2 23.8 mmol/L (21.0-32.0); CHLORIDE,CL 100 mmol/L (98-107); GLUCOSE RANDOM 75 mg/dL (74-106); POTASSIUM,K 3.9 mmol/L (3.5-5.1); SODIUM,NA 138 mmol/L (136-145)
--- NOTE | 2019-04-23 14:24 | CR ---
Chest: Frontal view of the chest was obtained. Comparison: Prior chest x-ray of 07/08/17. Heart size and mediastinum are normal. Lungs are clear. Bony structures are unremarkable. Impression: 1. Nothing acute is seen on frontal chest x-ray. Diagnostic code #1 Study was dictated in Mountain Standard Time
[2019-04-23 14:47] VITALS: BP 137/91; PULSE 100
== END 2019-04-23 14:50 | disposition home or self-care (01) ==
LOC: MW.ED 12:41
DX: J40 Bronchitis, not specified as acute or chronic (principal); I10 Essential (primary) hypertension; M19.90 Unspecified osteoarthritis, unspecified site; Z79.899 Other long term (current) drug therapy
CPT/HCPCS: 36415; 71045; 71045-26; 80053; 81001; 84484; 85025; 87804; 93005; 99283; 99284-25

== ENCOUNTER 2019-09-20 13:21 | Emergency (ER) | payer BC, MEDICARE, OTHER ==
[2019-09-20 14:58] VITALS: BP 123/78; PULSE 74
== END 2019-09-20 15:10 | disposition left against medical advice (07) ==
LOC: MW.ED 13:21
DX: Z53.21 Procedure and treatment not carried out due to patient leaving prior to being seen by health care provider (principal)

== ENCOUNTER 2019-09-20 20:12 | Emergency (ER) | payer BC, MEDICARE, OTHER ==
--- NOTE | 2019-09-20 20:44 | EDM.PDOC ---
ED HPI GENERAL MEDICAL PROBLEM - General Chief Complaint: General Stated Complaint: JAW PAIN Time Seen by Provider: 09/20/19 20:42 - History of Present Illness INITIAL COMMENTS - FREE TEXT/NARRATIVE: History of present illness: [] Has a toothache where she had her tooth pulled several days ago. Her dentist told her because it swelled she needed an antibiotic. She has swelling outside the jaw. She has no trismus. She handles her own secretions. Her voice is normal. She swallows well. She has no systemic signs of illness. She is nondiabetic. She does not have a heart murmur. Review of systems: As per history of present illness and below otherwise all systems reviewed and negative. Past medical history: As per history of present illness and as reviewed below otherwise noncontributory. Surgical history: As per history of present illness and as reviewed below otherwise noncontributory. Social history: No reported history of drug or alcohol abuse. Family history: As per history of present illness and as reviewed below otherwise noncontributory. Physical exam: Constitutional - well developed, well-nourished and in no acute distress HEENT - normocephalic, no evidence of trauma - external nose and mouth normal - no mass in neck and no JVD - mucosae moist there is a golf ball size lump external to the mandible near the angle on the left side. The tooth #30 has been removed and it appears that the cavity is covered with condensed secretions and/or clot EYES - full EOM, PERRL, no icterus - no evidence of inflammation, injection, or drainage Respiratory - no respiratory distress, equal bilateral expansion, lungs clear to auscultation and no abnormal lung sounds Cardiovascular - Regular Rhythm with S1 and S2 appreciated and no murmur, gallop or rub. GI - abdomen soft without distension or organomegaly - normal bowel sounds - no guard or rebound Musculoskeletal no gross deformity of long bones or joints - no tenderness, swelling or edema Neurologic - Alert and oriented times four - CN II-XII grossly intact - motor sensory and coordination symmetrically normal Psychiatric - appropriate mood and affect with normal thought content Hematologic - No petechiae or purpura - mucosa appropriate color and sclera not pale - normal nail bed color and refill Integument - no rash or evidence of trauma - normal turgor Diagnostics: [] Therapeutics: [] Impression: [] Plan: [] Definitive disposition and diagnosis as appropriate pending reevaluation and review of above. dental Pain Score (Numeric/FACES): 7 - Related Data Allergies Allergy/AdvReac Type Severity Reaction Status Date / Time No Known Allergies Allergy Verified 09/20/19 20:55 Home Meds: Home Meds Chlorthalidone 25 mg PO DAILY 09/20/19 [History] Doxepin [SINEquan] 50 mg PO BEDTIME 09/20/19 [History] Penicillin V Potassium [Veetids] 500 mg PO Q8H #30 tab 09/20/19 [Rx] traMADol [Ultram] 50 mg PO Q6H PRN 09/20/19 [History] Past Medical History - Past Health History Medical/Surgical History: Denies Medical/Surgical History HEENT History: Reports: None Cardiovascular History: Reports: Hypertension Respiratory History: Reports: None Gastrointestinal History: Reports: Chronic Constipation, Colon Polyp Genitourinary History: Reports: None 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: Musculoskeletal History: Reports: Arthritis, Fracture, Osteoporosis Other Musculoskeletal History: hx fx, wrist, ankle, elbow and fingers Neurological History: Reports: None Psychiatric History: Reports: Anxiety, Depression, PTSD Endocrine/Metabolic History: Reports: None Hematologic History: Reports: None Immunologic History: Reports: None Oncologic (Cancer) History: Reports: None Dermatologic History: Reports: None - Infectious Disease History Infectious Disease History: Reports: Chicken Pox, Measles, Mumps - Past Surgical History Head Surgeries/Procedures: Reports: None HEENT Surgical History: Reports: None Cardiovascular Surgical History: Reports: None Respiratory Surgical History: Reports: None GI Surgical History: Reports: None Female Surgical History: Reports: D&C Other Female Surgeries/Procedures: hysteroscopy & D&C Endocrine Surgical History: Reports: None Neurological Surgical History: Reports: Lumbar Spine Other Neurological Surgeries/Procedures: hx back surgery Musculoskeletal Surgical History: Reports: Hip Replacement Other Musculoskeletal Surgeries/Procedures:: evelina hip replacement, back surgery Oncologic Surgical History: Reports: None Dermatological Surgical History: Reports: None Social & Family History - Family History Family Medical History: Noncontributory - Caffeine Use Caffeine Use: Reports: None ED ROS GENERAL - Review of Systems Review Of Systems: Comprehensive ROS is negative, except as noted in HPI. ED EXAM, GENERAL - Physical Exam Exam: See Below Free Text/Narrative:: My physical exam as in the HPI Course - Vital Signs Last Recorded V/S: Last Vital Signs Temp 96.8 F L 09/20/19 20:41 Pulse 76 09/20/19 20:41 Resp 17 09/20/19 20:41 BP 128/69 09/20/19 20:41 Pulse Ox 76 L 09/20/19 20:41 Departure - Departure Time of Disposition: 21:03 Disposition: Home, Self-Care 01 Condition: Good Clinical Impression: Dental abscess - Discharge Information Instructions: Dental Abscess, [id number] Referrals: PCP,None [Primary Care Provider] - Forms: ED Department Discharge Additional Instructions: The following information is given to patients seen in the emergency department who are being discharged to home. This information is to outline your options for follow-up care. We provide all patients seen in our emergency department with a follow-up referral. The need for follow-up, as well as the timing and circumstances, are variable depending upon the specifics of your emergency department visit. If you don't have a primary care physician on staff, we will provide you with a referral. We always advise you to contact your personal physician following an emergency department visit to inform them of the circumstance of the visit and for follow-up with them and/or the need for any referrals to a consulting specialist. The emergency department will also refer you to a specialist when appropriate. This referral assures that you have the opportunity for follow-up care with a specialist. All of these measure are taken in an effort to provide you with optimal care, which includes your follow-up. Under all circumstances we always encourage you to contact your private physician who remains a resource for coordinating your care. When calling for follow-up care, please make the office aware that this follow-up is from your recent emergency room visit. If for any reason you are refused follow-up, please contact the [facility] Emergency Department at and asked to speak to the emergency department charge nurse. [facility] - Primary Care [address] [place] [id number] [facility] [address] [place] [id number] Sepsis Event Note (ED) - Focused Exam Vital Signs: Vital Signs Temp Pulse Resp BP Pulse Ox 09/20/19 20:41 96.8 F L 76 17 128/69 76 L
[2019-09-20 21:33] VITALS: BP 110/77; PULSE 85
== END 2019-09-20 21:17 | disposition home or self-care (01) ==
LOC: MW.ED 20:12
DX: K04.7 Periapical abscess without sinus (principal); I10 Essential (primary) hypertension
CPT/HCPCS: 99282

== ENCOUNTER 2020-11-02 11:40 | Day surgery (SDC) | payer BC, MEDICARE, OTHER ==
[~2020-11-02 11:40] MED LIST: Lactated Ringers 1,000 ML IV SCH; Sodium Chloride 0.9% 10 ML SDV IV PRN; Sodium Chloride 0.9% 10 ML Syringe FLUSH PRN; Sodium Chloride 0.9% 2.5 ML Syringe FLUSH PRN
[2020-11-02] MEDS ORDERED: Propofol 200 MG/20 ML SDV ONE (11:50)
[2020-11-02] MEDS ORDERED: fentaNYL 100 MCG/2 ML SDV ONE (11:51)
--- NOTE | 2020-11-02 12:14 | PCM.PREANE ---
Preanesthetic Assessment - Procedure Proposed Procedure: Colonoscopy - Anesthesia/Transfusion/Family Hx Anesthesia History: Prior Anesthesia Without Reaction Transfusion History: No Prior Transfusion(s) - Review of Systems General: No Symptoms Pulmonary: No Symptoms (Smokes 1 PPD) Cardiovascular: No Symptoms Gastrointestinal: Other (Hep C+ scheduled for evaluation and tx starting next week. H/O Colon Polyps) Neurological: No Symptoms Other: Reports: None - Physical Assessment NPO Status Date: 10/31/20 NPO Status Time: 18:30 Vital Signs: Last Vital Signs Temp 97.9 F 11/02/20 11:54 Pulse 86 11/02/20 11:54 Resp 15 11/02/20 11:54 BP 112/79 11/02/20 11:54 Pulse Ox 98 11/02/20 11:54 Height: 5 ft 6 in Weight: 71.668 kg ASA Class: 3 Mental Status: Alert & Oriented x3 Airway Class: Mallampati = 2 Dentition: Reports: Normal Dentition Thyro-Mental Finger Breadths: 3 Mouth Opening Finger Breadths: 3 ROM/Head Extension: Full Lungs: Clear to Auscultation, Normal Respiratory Effort Cardiovascular: Regular Rate, Regular Rhythm - Allergies Allergies/Adverse Reactions: Allergies Allergy/AdvReac Type Severity Reaction Status Date / Time No Known Allergies Allergy Verified 10/27/20 11:23 - Acknowledgements Anesthesia Type Planned: General Anesthesia Pt an Appropriate Candidate for the Planned Anesthesia: Yes Alternatives and Risks of Anesthesia Discussed w Pt/Guardian: Yes Pt/Guardian Understands and Agrees with Anesthesia Plan: Yes PreAnesthesia Questionnaire - Past Health History Medical/Surgical History: Denies Medical/Surgical History HEENT History: Reports: Cataract Other HEENT History: wears glasses, has upper full denture and lower removable partial denture Cardiovascular History: Reports: Hypertension Respiratory History: Reports: None Gastrointestinal History: Reports: Chronic Constipation, Colon Polyp, Hepatitis Other Gastrointestinal History: has chronic Hepatitis C Genitourinary History: Reports: None 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 MANAGER History: Reports: Musculoskeletal History: Reports: Arthritis, Fracture, Osteoporosis Other Musculoskeletal History: hx fx, wrist, ankle, elbow and fingers Neurological History: Reports: None, Other (See Below) Other Neuro History: chronic pain syndrome Psychiatric History: Reports: Anxiety, Depression, PTSD Endocrine/Metabolic History: Reports: None Hematologic History: Reports: None Immunologic History: Reports: None Oncologic (Cancer) History: Reports: None Dermatologic History: Reports: None - Infectious Disease History Infectious Disease History: Reports: Chicken Pox, Measles, Mumps - Past Surgical History Head Surgeries/Procedures: Reports: None HEENT Surgical History: Reports: None Cardiovascular Surgical History: Reports: None Respiratory Surgical History: Reports: None GI Surgical History: Reports: Colonoscopy Female Surgical History: Reports: D&C Other Female Surgeries/Procedures: hysteroscopy & D&C Endocrine Surgical History: Reports: None Neurological Surgical History: Reports: Lumbar Spine Other Neurological Surgeries/Procedures: hx back surgery Musculoskeletal Surgical History: Reports: Hip Replacement Other Musculoskeletal Surgeries/Procedures:: evelina hip replacement, back surgery to remove bone spurs Oncologic Surgical History: Reports: None Dermatological Surgical History: Reports: None - SUBSTANCE USE Tobacco Use Status *Q: Current Every Day Tobacco User Tobacco Use Within Last Twelve Months: Cigarettes Recreational Drug Use History: No - HOME MEDS Home Medications: Home Meds Chlorthalidone 25 mg PO DAILY 09/20/19 [History] Calcium Carbonate [Calcium] 600 mg PO DAILY 10/27/20 [History] Cholecalciferol (Vitamin D3) [Vitamin D3] 1,000 unit PO DAILY 10/27/20 [History] Garlic 10 mg PO DAILY 10/27/20 [History] Glucosam/Chond-Msm1/C/Scottie/Bor [Acgqefx-Xijft-KVY Complex Cplt] 1 cap PO DAILY 10/27/20 [History] Zinc Acetate [Galzin] 25 mg PO DAILY 10/27/20 [History] - CURRENT (IN HOUSE) MEDS Current Meds: Current Medications Lactated Ringer's (Ringers, Lactated) 1,000 mls @ 125 mls/hr IV ASDIRECTED ZULEMA Sodium Chloride (Sodium Chloride 0.9% 10 Ml Syringe) 10 ml FLUSH ASDIRECTED PRN PRN Reason: Keep Vein Open Sodium Chloride (Sodium Chloride 0.9% 2.5 Ml Syringe) 2.5 ml FLUSH ASDIRECTED PRN PRN Reason: Keep Vein Open Sodium Chloride (Sodium Chloride 0.9% 10 Ml Syringe) 10 ml FLUSH ASDIRECTED PRN PRN Reason: Keep Vein Open Sodium Chloride (Sodium Chloride 0.9% 2.5 Ml Syringe) 2.5 ml FLUSH ASDIRECTED PRN PRN Reason: Keep Vein Open Sodium Chloride (Sodium Chloride 0.9% 10 Ml Sdv) 10 ml IV ASDIRECTED PRN PRN Reason: IV Use Discontinued Medications Fentanyl (Fentanyl 100 Mcg/2 Ml Sdv) Confirm Administered Dose 100 mcg .ROUTE .STK-MED ONE Stop: 11/02/20 11:52 Lidocaine HCl (Lidocaine 1% 5 Ml Sdv) Confirm Administered Dose 5 ml .ROUTE .STK-MED ONE Stop: 11/02/20 11:51 Propofol (Propofol 200 Mg/20 Ml Sdv) Confirm Administered Dose 400 mg .ROUTE .STK-MED ONE Stop: 11/02/20 11:51
[2020-11-02] MEDS ORDERED: ePHEDrine 50 MG/ML SDV ONE (13:33)
--- NOTE | 2020-11-02 13:40 | PCM.OPNOTE ---
- General Post-Op/Procedure Note Date of Surgery/Procedure: 11/02/20 Operative Procedure(s): Diagnostic colonoscopy Findings: Ascending colon polyp Pre Op Diagnosis: History of colon polyps, family history of colon cancer Post-Op Diagnosis: Ascending colon polyp Anesthesia Technique: MARCOS Primary Surgeon: Olive Bryan Condition: Good
--- NOTE | 2020-11-02 13:45 | PCM.POSTAN ---
POST ANESTHESIA ASSESSMENT - MENTAL STATUS Mental Status: Alert, Oriented - VITAL SIGNS Vital Signs: Last Vital Signs Temp 97.9 F 11/02/20 11:54 Pulse 80 11/02/20 13:39 Resp 13 11/02/20 13:39 BP 72/48 L 11/02/20 13:39 Pulse Ox 97 11/02/20 13:39 - RESPIRATORY Respiratory Status: Respiratory Rate WNL, Airway Patent, O2 Saturation Stable - CARDIOVASCULAR CV Status: Pulse Rate WNL, Blood Pressure Stable - GASTROINTESTINAL GI Status: No Symptoms - PAIN Pain Score: 0 - POST OP HYDRATION Hydration Status: Adequate & Stable
--- NOTE | 2020-11-02 13:54 | PCM48HPAN ---
Post Anesthesia Note - EVALUATION WITHIN 48HRS OF ANESTHETIC Vital Signs in Normal Range: Yes Patient Participated in Evaluation: Yes Respiratory Function Stable: Yes Airway Patent: Yes Cardiovascular Function Stable: Yes Hydration Status Stable: Yes Pain Control Satisfactory: Yes Nausea and Vomiting Control Satisfactory: Yes Mental Status Recovered: Yes Vital Signs: Last Vital Signs Temp 97.9 F 11/02/20 11:54 Pulse 83 11/02/20 13:50 Resp 18 11/02/20 13:50 BP 89/58 L 11/02/20 13:50 Pulse Ox 94 L 11/02/20 13:50 - COMMENTS/OBSERVATIONS Free Text/Narrative:: Pt doing well post-op. VSS. No apparent anesthetic complications. Dr. Yosi Woodall
[2020-11-02 14:16] VITALS: BP 84/53; PULSE 84
--- NOTE | 2020-11-03 20:01 | OR ---
SURGEON: OLIVE BRYAN MD DATE OF PROCEDURE: 11/02/2020 PREOPERATIVE DIAGNOSES: Family history of colon cancer, history of colon polyps. POSTOPERATIVE DIAGNOSIS: Ascending colon polyp. PROCEDURES PERFORMED: Screening colonoscopy with polypectomy. PRIMARY SURGEON: Olive Bryan MD ANESTHESIA: MAC. INSTRUMENT USED: Olympus. EXTENT OF THE EXAMINATION: To the cecum. PREPARATION: Good. LIMITATIONS: None. INDICATIONS FOR EXAMINATION: The patient is a 55-year-old female, who is due for a colonoscopy. She has a strong family history of colon cancer. I explained the procedure, the expected perioperative course, and the risks. She verbalized understanding and wishes to proceed. PROCEDURE IN DETAIL: The patient was brought to the endoscopy suite and placed in the left lateral decubitus position. A time-out was completed, verifying the patient's name, age, date of , allergies, and procedure to be performed. Monitored anesthesia care was induced, and continuous oxygen was provided via nasal cannula throughout the procedure. After adequate sedation was achieved, a digital rectal exam was performed. This exam was within normal limits. A well- lubricated colonoscope was inserted in the rectum and advanced under direct visualization to the level of the cecum. The cecum was identified by both visual and anatomic landmarks. A photograph was taken of the cecal cap; however, I was unable to retroflex the scope within the cecum due to looping of the scope more proximally. The scope was then fully withdrawn while examining the color, texture, anatomy, and integrity of the mucosa from the cecum to the anal canal. The patient was found to have an ascending colon polyp. This was removed in piecemeal fashion using a cold biopsy forceps. The remainder of the colon appeared normal. The scope was brought into the rectum and retroflexed to allow visualization of the anal canal opening. This appeared normal, and a photograph was taken. The scope was then straightened out and fully withdrawn. The [id number]-il-pyyl time was 14 minutes. The patient tolerated the procedure well and was transferred to the PACU in stable condition. ENDOSCOPIC DIAGNOSIS: Ascending colon polyp. RECOMMENDATION: Follow up in clinic in 2 weeks. VINCE GONZALEZ /[id number]
== END 2020-11-02 14:15 | disposition home or self-care (01) ==
LOC: MW.SDS 11:40
PROVIDERS: ATTEND Surgery
DX: D12.2 Benign neoplasm of ascending colon (principal); F17.210 Nicotine dependence, cigarettes, uncomplicated; Z86.010 Personal history of colon polyps; Z80.0 Family history of malignant neoplasm of digestive organs
CPT/HCPCS: 45380; 88305; J2704; J3010; J7120; 00811

== ENCOUNTER 2021-10-23 19:47 | Emergency (ER) | payer BC, OTHER ==
[2021-10-24] MEDS ORDERED: Cephalexin 500 MG Cap PO ONE (00:18)
[2021-10-24 00:37] VITALS: BP 148/90; PULSE 79
== END 2021-10-24 00:36 | disposition home or self-care (01) ==
LOC: MW.ED 19:47
DX: T24.131A Burn of first degree of right lower leg, initial encounter (principal); M19.90 Unspecified osteoarthritis, unspecified site; I10 Essential (primary) hypertension; M79.604 Pain in right leg; M79.89 Other specified soft tissue disorders; M71.21 Synovial cyst of popliteal space [Baker], right knee; Z87.891 Personal history of nicotine dependence
CPT/HCPCS: 93971; 99283; A9270